=== PATIENT | female | born 1970 | race Caucasian/White ===

== ENCOUNTER → 2017-09-23 17:56 | Outpatient (CLI) | payer MEDICAID, SELFPAY | PROVIDERS: Family Provider Student in an Organized Health Care Education/Training Program; PCP Student in an Organized Health Care Education/Training Program; Visit Provider Obstetrics & Gynecology | DX: Z01.419 Encounter for gynecological examination (general) (routine) without abnormal findings (principal); Z12.4 Encounter for screening for malignant neoplasm of cervix ==

== ENCOUNTER → 2021-07-08 | Outpatient (CLI) | payer MEDICAID, SELFPAY ==
[2021-07-16 16:14] LABS: HPV APTIMA, High Risk Negative (Negative)
== END | disposition home or self-care (01) ==
LOC: LABSPEC 16:12
PROVIDERS: PCP Student in an Organized Health Care Education/Training Program; Visit Provider Obstetrics & Gynecology
DX: Z12.4 Encounter for screening for malignant neoplasm of cervix (principal)
CPT/HCPCS: 87624; 88175; G0145

== ENCOUNTER → 2022-06-18 | Outpatient (CLI) | payer MEDICAID, SELFPAY ==
--- NOTE | 2022-06-18 13:37 | CT_ITS ---
EXAM: CT ABDOMEN AND PELVIS WITH INTRAVENOUS CONTRAST CLINICAL INDICATION: PELVIC MASS TECHNIQUE: Helically acquired images were obtained of the abdomen and pelvis with intravenous contrast. This CT exam was performed using one or more of the following dose reduction techniques: automated exposure control, adjustment of the mA and/or kV according to patient size, and/or use of iterative reconstruction technique. This report was created using [employer] report generation technology. CONTRAST: Oral and amp; IV Readi-CAT and amp; 100mL Isovue-300 COMPARISON: CT Abdomen Pelvis dated 01/23/2014 FINDINGS: LOWER THORAX: Normal. Lung bases are clear. No cardiomegaly. No pericardial effusion. ABDOMEN: LIVER: Normal. Homogeneous. No focal mass. GALLBLADDER AND BILE DUCTS: Gallbladder is absent. No intra- or extrahepatic biliary ductal dilation. PANCREAS: Normal. No focal cystic or solid mass. SPLEEN: Normal. Normal size without focal cystic or solid mass. ADRENALS: Normal. No nodules. KIDNEYS AND URETERS: Normal. Normal renal size and position. No hydronephrosis. STOMACH AND BOWEL: Normal. No bowel distention. No focal inflammatory change. PELVIS: APPENDIX: No evidence of acute appendicitis. BLADDER: Urinary bladder is contracted. REPRODUCTIVE: Fundal uterine fibroids are noted largest one measuring 6.6 cm in maximum diameter. ABDOMEN and PELVIS: INTRAPERITONEAL SPACE: No adnexal mass or free pelvic fluid. No free air. BONES/JOINTS: Normal. No suspicious lytic or blastic abnormality. SOFT TISSUES: Normal. No discrete abdominal or pelvic wall hernia. VASCULATURE: Normal. Abdominal aorta is non-dilated. LYMPH NODES: Normal. No enlarged lymph nodes. CT/Abdomen/Pelvis WITH Contrast IMPRESSION: Fibroid uterus. Electronically Signed: Jerson Yang MD at 14:47 EST ,
[2022-06-18 13:56] LABS: CREATININE FINGERSTICK < 0.9 mg/dL (0.55-1.02); EGFR FINGERSTICK > 60.0000 mL/min (>60)
== END | disposition home or self-care (01) ==
LOC: CT 13:23
PROVIDERS: PCP Student in an Organized Health Care Education/Training Program; Referring Provider Obstetrics & Gynecology; Visit Provider Obstetrics & Gynecology
DX: R19.00 Intra-abdominal and pelvic swelling, mass and lump, unspecified site (principal)
CPT/HCPCS: 74177; Q9967

== ENCOUNTER → 2023-03-25 | Outpatient (CLI) | payer MEDICAID, SELFPAY ==
--- NOTE | 2023-03-25 12:57 | BI_ITS ---
MAMMOGRAPHY - BILATERAL SCREENING REASON FOR EXAM: Female, 52 years old. Routine annual screening examination. PERTINENT HISTORY: Non-contributory. TECHNIQUE: Digital bilateral breast abrahan (3D mammographic acquisition) in the CC and MLO projections. 2-D mediolateral oblique (MLO) and craniocaudad (CC) views of both breasts were obtained. CAD: Full Field Digital Mammography with Computer Added Detection was performed. COMPARISON: Comparison is made with prior outside examination dated October 02, 2021. FINDINGS: Breast Composition: There are scattered areas of fibroglandular density. There are no dominant masses or suspicious calcifications. No other significant abnormalities are identified. There has been no significant change since the prior study. BI/SCRN MAMM (CAD)W/ABRAHAN BILAT IMPRESSION: Stable bilateral screening mammogram. Yearly follow-up mammogram recommended. (A) ASSESSMENT CATEGORY: BIRADS Category 1: Negative. A letter regarding these results will be sent to the patient by the facility within 30 days. Approximately 10% of breast cancers are not detected by mammography. A normal mammogram should not delay biopsy of a clinically suspicious abnormality. [id number] Electronically Signed: José Orellana MD at 8:19 EDT ,
== END | disposition home or self-care (01) ==
LOC: OPBI 12:55
PROVIDERS: PCP Student in an Organized Health Care Education/Training Program; Referring Provider Nurse Practitioner Women's Health; Visit Provider Nurse Practitioner Women's Health
DX: Z12.31 Encounter for screening mammogram for malignant neoplasm of breast (principal)
CPT/HCPCS: 77063; 77067

== ENCOUNTER 2023-09-02 11:00 | Outpatient (RCR) | payer MEDICAID, SELFPAY ==
--- NOTE | 2023-06-17 12:51 | HP.PTEVAL_ITS ---
Patient's Visit Information Visit Information Visit Information: BARBARA THOMAS is a 52 year old F referred to Physical Therapy by Dr. Josh Gastelum MD with a diagnosis of vertigo, unsteadiness.. Date of Evaluation: 06/17/23 Physical Therapist: Cong Lucero, DPT, OCS, CSCS Visit Plan Frequency: 1x/Week Duration: 2 Months Plan: weekly x 8 for 1. Biodex balance performance assessment and pt will do head turn cawthorne netta ex 6-10x 4x/day until then) 2. Then balance as needed, vestibular progression of habituation/adaptation, and get on a general exe program at home. Give exercises each week and pt to do them at home. Subjective Subjective: 30 yrs ago had migraines and dizzyness and off work for a month or two. worsening for 30 yrs, had some good times but also gets worse at times. Had testing in September describing vestibular tests. It put her in tears and has been worse since. Dizzyness is everything moving and feels unsteady. head spins and has for as long as she can remember. Sometimes tolerable. No reason that it started 30 yrs ago. No one can tell her what is causing it, has tried many meds, catscans and MRIs and none show anything. Last MRI may show some veins in brain are slightly dilated possibly suggesting migraines. Has seen brain surgeon who sent her to colleague but nothing they could do. Living on antivert for 30 yrs everyday. It gets worse balance if does not take it for a number of days. Has had IV infusion which made her sick. Takes something for migraines when needed. Takes OTC drugs also. Dizzy is constant and gets worse at rest for no reason with no pattern. Feels off balance when on feet and walking,hard to verbalize what makes it worse. No falls anytime lately. No AD needed. LUTHER baseline constant and car ride makes her worse. LUTHER is R posterior 5-10 Has neuropathy in LE for years with sjogren's syndrome, Is also Diabetic. 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 Sleep is not great, not sure why Basic ADLS getting done. Hobbies: Too tired to do anything, Works and relaxes with games on phone. No regular exercises, just work Pain LUTHER: Pain Intensity (Out of 10): 8 Pain Intensity Range: 5 and 8 Objective Objective: Walks slowly but I into PT, says she feels unsteady but none in gait pattern. Transfers with UE and groans due to LE weakness and discomfort knees and hips from chair and bed. Steps are reciprocal with two rails up and down. Balance is good today without LOB, head movements up and down and side to side seem to be the worst. - B hallpikie howard Oculomotor: any head movement or eye movement makes her wince and groan and stopa dn close eyes with increased dizzyness that might make me nauseous if I continue normal Pursuit and saccades and VOR otherwise. - head thrust - ocular tilt - skew eye deviation. reflexes patella and achilles 1/3 B. sensation LE WNL to gross light touch. Strength LE funcitonally weak on steps and transfers and 3+/5 to testing without myotomal problems. Is in therapy for her LB elsewhere. Pt does well with balance testing but feels insteady much of time and wants to put hands up to balance despite no obvious LOB. Balance/Special Test Scores Functional Gait Assessment Score: 26 % Disability: 13.3400 CATSIB Score (Max score 120 seconds): 120 Dizziness Score: 62 Goals Goal 1:: 29/30 FGA to reduce fall risk Goal Time Frame: 6-8 Weeks Goal 2:: I appropriate HEP of general strength, vestibular ex and balance as needed. Goal Time Frame: 6-8 Weeks Goal 3:: Biodex balance performance assessment Goal Time Frame: 2 Weeks Goal 4:: Pt feel 755 better in overall dizzyness and steadiness and 50% better in LUTHER to 3/10 at worst Goal Time Frame: 6-8 Weeks Goal 5:: 30 or less on DHI Goal Time Frame: 6-8 Weeks Rehabilitation Potential Physical Therapy Diagnosis: Feeling of dizzyness, LUTHER limiting function. Rehabilitation Potential: Questionable Anticipated Interventions Patient/Client Instruction: Educate patient on: Condition and Plan of Care For the Purpose of:: To improve nutrient delivery to tissue, To improve muscle performance and motor function, To increase tolerance to activity/condition/position and To improve ability of physical actions for home/community/work/leisure Therapeutic Exercise to Include: Strength training, Balance training, Postural training and Flexibilty training Comment: vestibular exercises For the Purpose of:: To improve nutrient delivery to tissue, To improve muscle performance and motor function, To increase tolerance to activity/condition/position, To improve ability of physical actions for home/community/work/leisure, To improve gait and locomotor functions and To improve balance Text: Thank you for the opportunity to evaluate your patient. For Medicare and Medicare HMO plans, please review the plan of care and approve it. It will need to be FAXED BACK to us at [phone] for Medicare purposes. For Medicare only, by signing this I certify the plan of care. Please let me know if there are questions or concerns regarding this plan of care. Physician Signature: Date:
--- NOTE | 2023-07-12 14:33 | HP.PTCOM ---
PT Communication Note 07/12/[address] Josh Gastelum MD , Thank you for your referral of Monique to [facility] for vestibular and balance testing. I have enclosed a copy of the results for your review. In summation, she scored very well on the biodex testing on Modified CATSIB and Limits of Stability. her balance tests well but feels off to her which is consistent with her dizzy feeling. With these results in mind, I plan to see her weekly for at least 2 visits or longer in POC to progress vestibular related balance ex and head movement exercises via HEP. Thank you for your referral. Sincerely, LEELEE RamseyT, OCS, CSCS Contact Information
--- NOTE | 2023-07-22 16:14 | HP.PTREVAL_ITS ---
Re-Evaluation Intro: Dr. Josh Gastelum MD, It has been my pleasure to treat BARBARA THOMAS over the last 4 visits for vertigo, unsteadiness.. Please see the progress note below for an update on the physical therapy plan of care! Subjective Subjective: Always painful and always dizzy a little bit. Pt ends to focus on pain rather than movement and any treatment that may help. Objective Objective/Function: Lots of complaints of pain and leg discomfort but did exercises well. C/o knee mismanagement by doctor in past and still focussing on that over any improvement. Plan Plan Plan: get extension and continue POC to a more agggressive leg strength adn progression of VOR weekly x 3 Will need date extension and paperwork given to senior front end web developer. Balance/Gait/Functional tests Balance/Special Test Scores Functional Gait Assessment Score: 26 % Disability: 13.3400 CATSIB Score (Max score 120 seconds): 120 Dizziness Score: 62 Goals Goals Goal 1:: 29/30 FGA to reduce fall risk Goal Time Frame: 6-8 Weeks Goal 2:: I appropriate HEP of general strength, vestibular ex and balance as needed. Goal Time Frame: 6-8 Weeks Goal Progress: Progressing Goal 3:: Biodex balance performance assessment Goal Time Frame: 2 Weeks Goal Progress: Goal Met Goal 4:: Pt feel 755 better in overall dizzyness and steadiness and 50% better in LUTHER to 3/10 at worst Goal Time Frame: 6-8 Weeks Goal Progress: slow Goal 5:: 30 or less on DHI Goal Time Frame: 6-8 Weeks Anticipated Interventions Anticipated Interventions Patient/Client Instruction: Educate patient on: Condition and Plan of Care For the Purpose of:: To improve nutrient delivery to tissue, To improve muscle performance and motor function, To increase tolerance to activity/condition/position and To improve ability of physical actions for home/community/work/leisure Therapeutic Exercise to Include: Strength training, Balance training, Postural training and Flexibilty training Comment: vestibular exercises For the Purpose of:: To improve nutrient delivery to tissue, To improve muscle performance and motor function, To increase tolerance to activity/condition/position, To improve ability of physical actions for home/community/work/leisure, To improve gait and locomotor functions and To improve balance Re-Evaluation Ending Re-evaluation ending: Please do not hesitate to contact me at [phone] by phone or if you have questions or concerns regarding this new plan of care! Sincerely, Cong Lucero, DPT, OCS, CSCS
--- NOTE | 2023-09-02 11:27 | HP.PTDCSUM ---
Discharge Summary D/C summary: It has been my pleasure to treat BARBARA THOMAS referred by Dr. Josh Gastelum MD, with the diagnosis of vertigo, unsteadiness. for a total of 7 visit(s). Discharge Date: 09/02/23 Please see the following information for a summary of their discharge status. Subjective Subjective: Non compliant with HEP daily, maybe did it once or twice. Not sure when f/u is with Dr. Gastelum. Overall up and down depending on the day. Bad days she cannot function with migraines and possible dizzyness or pain from other issues. No pattern noticeable to bad days. Good days not bad, LUTHER is minimal, no dizzyness and can funciton. Again, not sure what leads to these. HEP on different days, can stand up from clients couch but it is still hard from a lower couch, not painful or overly weak. Nothing causes dizzyness unless she spins around, random. No falls lately except on failed step stool. Pain LUTHER: Pain Intensity (Out of 10): 8 knees: Pain Intensity (Out of 10): 5 Overall Improvement % Improvement: 50 Objective Objective/Function: FGA is +2 DHI is about half what it was. Walking well today without LOB and no c/o dizzyness or LUTHER this day. Steps require rail due to distrust of the knees. Compliance with HEP has been and will continue to be questionable. Goals Goal 1:: 29/30 FGA to reduce fall risk Goal Progress: Progressing Goal 2:: I appropriate HEP of general strength, vestibular ex and balance as needed. Goal Progress: compliance? Goal 3:: Biodex balance performance assessment Goal Progress: Goal Met Goal 4:: Pt feel 755 better in overall dizzyness and steadiness and 50% better in LUTHER to 3/10 at worst Goal Progress: 50% Goal 5:: 30 or less on DHI Goal Progress: Progressing Plan Plan: d/c to HEp D/C Information Discharge Comments: Pt to cotninue HEP for head movements, balance and general ex and f/u with doctor as directed. d/c sentence: If there are questions or concerns regarding this patient's physical therapy, please feel free to call me at [phone]. Thank you for the referral of this patient. Sincerely, Cong Lucero, DPT, OCS, CSCS Balance/Gait/Functional tests Balance/Special Test Scores Functional Gait Assessment Score: 28 % Disability: 6.6700 CATSIB Score (Max score 120 seconds): 120 Dizziness Score: 34 Improvement % Improvement: 50
== END 2023-09-02 13:09 | disposition home or self-care (01) ==
LOC: PT 11:00
PROVIDERS: PCP Student in an Organized Health Care Education/Training Program; Referring Provider Psychiatry & Neurology Neurology; Visit Provider Psychiatry & Neurology Neurology
DX: R42 Dizziness and giddiness (principal)
CPT/HCPCS: 97110; 97162; 97750

== ENCOUNTER → 2024-03-30 | Outpatient (CLI) | payer MEDICAID, SELFPAY ==
--- NOTE | 2024-03-30 13:11 | BI_ITS ---
MAMMOGRAPHY - BILATERAL SCREENING REASON FOR EXAM: Female, 53 years old. Routine annual screening examination. PERTINENT HISTORY: Aunt with breast cancer. TECHNIQUE: Digital bilateral breast abrahan (3D mammographic acquisition) in the CC and MLO projections. 2-D mediolateral oblique (MLO) and craniocaudad (CC) views of both breasts were obtained. CAD: Full Field Digital Mammography with Computer Added Detection was performed. COMPARISON: Comparison is made with prior study March 25, 2023. FINDINGS: Breast Composition: There are scattered areas of fibroglandular density. There are no dominant masses or suspicious calcifications. Stable benign-appearing bilateral axillary lymph nodes. No other significant abnormalities are identified. There has been no significant change since the prior study. BI/SCRN MAMM (CAD)W/ABRAHAN BILAT IMPRESSION: Stable bilateral screening mammogram. Yearly follow-up mammogram recommended. (A) ASSESSMENT CATEGORY: BIRADS Category 2: Benign. A letter regarding these results will be sent to the patient by the facility within 30 days. Approximately 10% of breast cancers are not detected by mammography. A normal mammogram should not delay biopsy of a clinically suspicious abnormality. [id number] Electronically Signed: José Orellana MD at 14:09 EDT ,
== END | disposition home or self-care (01) ==
LOC: OPBI 13:11
PROVIDERS: PCP Student in an Organized Health Care Education/Training Program; Referring Provider Nurse Practitioner Family; Visit Provider Nurse Practitioner Family
DX: Z12.31 Encounter for screening mammogram for malignant neoplasm of breast (principal); Z80.3 Family history of malignant neoplasm of breast
CPT/HCPCS: 77063; 77067

== ENCOUNTER 2024-07-19 08:40 | Day surgery (SDC) | payer MEDICAID, SELFPAY ==
[2024-07-19] VITALS (7 sets, daily range): BP systolic 98–122; BP diastolic 65–83; PULSE 70–92; RESP 16; TEMP 36.3–36.6; O2SAT 95–98; BMI 39.6
--- NOTE | 2024-07-19 08:57 | PRE.ANES_ITS ---
ASA Classification* ASA Classification ASA Classification: 2 Assessment & Plan Anesthesia* Anesthesia Assessment Anesthesia Assessment: Discussed sedation and/or anesthesia options, risks, benefits, and alternatives with patient/parents/legal guardian/POA. Questions invited. The patient/parents/legal guardian/POA seems to understand and agrees to proceed with anesthesia plan. Reviewed the physical assessment, medical history, allergy history and patient home medications list prior to surgery/procedure/anesthetic and documented any changes. Performed airway and anesthesia risk assessments. Anesthesia Type Anesthesia Type: MAC Anesthesia Focused Assessment* Airway Assessment Mouth opens: >3 cm Mallampati Score: II Focused Labs Anesthesia Preop lab: CBC WBC 6.7 K/mm3 (4.4-11.0) 08/29/16 06:48 RBC 3.43 M/mm3 (4.2-5.4) L 08/29/16 06:48 Hgb 10.0 g/dl (12.0-15.0) L 08/29/16 06:48 Hct 32.0 % (37-47) L 08/29/16 06:48 Plt Count 342 K/mm3 (150-450) 08/29/16 06:48 CHEMISTRY Potassium 4.1 mmol/L (3.5-5.1) 08/29/16 06:48 Sodium 131 mmol/L (136-145) L 08/29/16 06:48 BUN 8 mg/dL (7-18) 08/29/16 06:48 Creatinine 0.56 mg/dL (0.55-1.02) 08/29/16 06:48 Glucose 171 mg/dL (70-110) H 08/29/16 06:48 POC Glucose 184 mg/dL (70-110) H 08/28/16 16:46 COAG Pre-Assessment Diagnosis/Proposed Procedure Planned Operative Procedure(s): CSCOPE Anesthesia History Anesthesia History - health communications specialist: Anesthesia History - health communications specialist Hx Hospitalization No 06/19/24 12:08 Any Problems With Anesthesia No 06/19/24 12:08 Cholinesterase deficiency No 06/19/24 12:08 You/Your Family Experience No 06/19/24 12:08 fever (hyperthermia) with Relationship Recent Exposure to Contagious No 02/28/20 14:35 Disease Does patient have nerve No 06/19/24 12:08 stimulator Patient instructed to have device shut off --Does patient have Pacemaker or ICD? When Was Last Pacemaker Check QUESTION #4 FULL TEXT: You/Your Family Experience fever (hyperthermia) with Anesthesia Last Oral Intake Last Oral intake: Last Oral Intake NPO since Meds taken in AM with sips of water? Meds patient instructed to take am of surgery PONV PONV - health communications specialist: PONV - health communications specialist Female Yes 06/19/24 12:08 HX of Motion Sickness Yes 06/19/24 12:08 HX of N/V After Surgery No 06/19/24 12:08 Non-Smoker Yes 06/19/24 12:08 Duration of Surgery greater No 06/19/24 12:08 than 60 minutes Number of Risk Factors 3 06/19/24 12:08 PONV Score Moderate Risk 06/19/24 12:08 Height & Weight Height & Weight: Anesthesia: Height & Weight Height 5 ft 6 in 04/27/24 13:23 Respiratory Assessment Respiratory Assessment - health communications specialist: Respiratory Tract Infection Hx - health communications specialist Hx Respiratory Tract Infection No 06/19/24 12:08 STOP Sleep Apnea STOP Sleep Apnea - health communications specialist: STOP Sleep Apnea - health communications specialist Hx Hypertension No 06/19/24 12:08 Hx Sleep Apnea No 06/19/24 12:08 CPAP No 02/28/20 14:35 BIPAP Do you snore loudly (louder No 06/19/24 12:08 than talking or can be heard Do you often feel tired/ Yes 06/19/24 12:08 fatigued/ sleepy during daytime? Has anyone observed you stop No 06/19/24 12:08 breathing during sleep? STOP Results Negative 06/19/24 12:08 QUESTION #5 FULL TEXT : Do you snore loudly (louder than talking or can be heard through closed doors)? Tobacco Use History Tobacco Use History - health communications specialist: Tobacco Use History - health communications specialist Tobacco Use Smoking Status Never smoker 06/19/24 12:08 Hx Tobacco Use No 06/19/24 12:08 Years Smoking Packs Smoked per Day Smoking Cessation Date was within the last 15 years Hx Smoking Cessation Date Hx Smoking Cessation Counseling Hematologic Medial History Hematologic Hx - health communications specialist: Hematologic Medical Hx - divorce lawyer Hx of Blood Transfusion No 06/19/24 12:08 Hx of Transfusion in last 3 No 06/19/24 12:08 Months Date of Last Transfusion (if within last 3 months) Ever experience any problems No 06/19/24 12:08 with transfusion(s)? Specify any problems Hx of Preganancy in last 3 No 06/19/24 12:08 Months Nurse Filling Out Transfusion DSCHRIBER 06/19/24 12:08 & Questions: Date: 06/19/24 06/19/24 12:08 Time: 12:10 06/19/24 12:08 Patient unable to answer at this time (ie. confused, unrespo /Reproduction History /Reproductive History - health communications specialist: /Reproductive Hx- health communications specialist Hx Now No 06/19/24 12:08 Gestational Age (in weeks): EDC: Hx Hx Para Hx Section SAB No 06/19/24 12:08 [facility] Medical History Loss of hearing Depression History of steroid therapy Thyroid disease Insulin dependent diabetes mellitus Arthritis Low iron Back pain Injury of head and neck Migraine headache Syncope Difficulty swallowing Dietary restriction Gastric reflux Asthma Non-smoker Shortness of breath on exertion History of pain when walking Diarrhea Nausea Acid reflux Sjogrens syndrome Fibromyalgia h/o kidney stone removal Home Medications ?Medication ?Instructions ?Recorded ?Last Taken ?Type amitriptyline 25 mg tablet 50 mg PO QHS 08/20/16 Unknown History cholecalciferol (vitamin D3) 125 5,000 unit PO DAILY 08/20/16 Unknown History mcg (5,000 unit) capsule magnesium 200 mg tablet 200 mg PO DAILY 08/20/16 Unknown History meclizine 25 mg tablet 25 mg PO QHS 08/20/16 Unknown History multivitamin 1 tab PO DAILY 08/20/16 Unknown History levothyroxine 25 mcg tablet 25 mcg PO DAILY 07/24/20 Unknown History metformin 500 mg tablet 1,000 mg PO BID 07/24/20 Unknown History venlafaxine 75 mg tablet 75 mg PO QHS 07/24/20 Unknown History insulin aspart U-100 100 unit/mL See Rx Instructions subcut .COMPLEX 04/16/21 Unknown History (3 mL) subcutaneous pen insulin glargine 100 unit/mL (3 12 unit subcut .HS 04/16/21 Unknown History mL) subcutaneous pen ubrogepant 100 mg tablet (Ubrelvy) 100 mg PO PRN PRN MIGRAINES 04/28/23 Unknown History atogepant 30 mg tablet (Qulipta) 60 mg PO DAILY 03/02/24 Unknown History albuterol sulfate 90 mcg/actuation 2 puff inhalation PRN PRN dyspnea 06/19/24 Unknown History aerosol inhaler (Ventolin HFA) dulaglutide 3 mg/0.5 mL 3 mg subcut BROOKS 06/19/24 07/09/24 History subcutaneous pen injector (Trulicity) famotidine 20 mg tablet (Pepcid AC) 20 mg PO BID 06/19/24 Unknown History ferrous sulfate 325 mg (65 mg 325 mg PO DAILY 06/19/24 Unknown History iron) tablet (Iron (ferrous sulfate)) sodium sul 1.479 gram-potas ch See Rx Instructions PO PER PKG DIR 06/21/24 Unknown Rx 0.188 gram-magnes sul 0.225 gram #1 pkg tablet (Sutab) progesterone micronized 100 mg 100 mg PO QHS #30 caps 06/22/24 Unknown Rx capsule (Prometrium) Allergy/AdvReac Type Severity Reaction Status Date / Time peanut Allergy Mild lip Verified 07/13/24 13:34 numbness clarithromycin (From Biaxin) Allergy Unknown Verified 07/13/24 13:34 oxycodone Allergy Itching Verified 07/13/24 13:34 Sulfa (Sulfonamide Allergy Unknown Verified 07/13/24 13:34 Antibiotics) cortisone AdvReac LETHARGIC Verified 07/13/24 13:34 Family History Mother Diabetes Thyroid disorder Fibromyalgia Arthritis Total knee replacement status Father CVA (cerebral vascular accident) Diabetes Heart valve replaced Thyroid disorder kidney Dementia Sister Thyroid disorder Depression Uncle Leukemia Grandfather Lung cancer Other Cancer Surgical History History of esophagogastroduodenoscopy (EGD) Hx of colonoscopy H/O sinus surgery H/O hand surgery History of cholecystectomy History of oophorectomy H/O total knee replacement Social History household members: other details: parents, sister housing: house current occupational status: employed Smoking Status: Never smoker alcohol intake: never what type of physical activity do you participate in: none do you feel safe at home: Yes Review of Systems (Anesthesia) ROS Narrative System reviewed and no additional complaints, except as documented.
--- NOTE | 2024-07-19 09:17 | H&P.OPEN ---
HPI - General General Date of Service: 07/19/24 HPI Narrative BARBARA THOMAS, is a 53 F who presents for an EGD and colonoscopy due to GERD and screening colonoscopy. Patient is still taking Pepcid twice daily. States she does have a little bit reflux daily depending on the food she eats. Patient otherwise states she is still having bowel movements daily. Denies any other changes. Office visit 04/27/2024 [facility] HPI: 53-year-old female presents for EGD and colonoscopy. Patient states her last EGD and colonoscopy was in 2009 about at [facility] [place] states colonoscopy was negative. Patient states she has been on omeprazole until the spring [facility] patient came off as she heard about possible increased risk for dementia which she does have a family history of. Patient is currently taking [id number] famotidine 40 mg p.o. twice daily. Patient states she still gets upset stomach and quite a bit of nausea which she states was about the same with the omeprazole as well patient also has a past medical history significant for Sjogren's and does not notice some issues with swallowing the upper esophagus. Patient was told in 2009 she had some erosions at her GE junction. Patient states she has bowel movements daily does occasionally get diarrhea typically in the morning states unsure if it is from her magnesium she takes at night which she takes for migraines and muscle cramps. Patient denies any blood in her stool. Patient does take occasional Pepto-Bismol as well denies any black stools with that. Patient denies any family history of colon cancer. Patient's dad did have significant number of polyps unsure exact size currently. [facility] Medical History Loss of hearing Depression History of steroid therapy Thyroid disease Insulin dependent diabetes mellitus Arthritis Low iron Back pain Injury of head and neck Migraine headache Syncope Difficulty swallowing Dietary restriction Gastric reflux Asthma Non-smoker Shortness of breath on exertion History of pain when walking Diarrhea Nausea Acid reflux Sjogrens syndrome Fibromyalgia h/o kidney stone removal Home Medications ?Medication ?Instructions ?Recorded ?Last Taken ?Type amitriptyline 25 mg tablet 50 mg PO QHS 08/20/16 Unknown History cholecalciferol (vitamin D3) 125 5,000 unit PO DAILY 08/20/16 Unknown History mcg (5,000 unit) capsule magnesium 200 mg tablet 200 mg PO DAILY 08/20/16 Unknown History meclizine 25 mg tablet 25 mg PO QHS 08/20/16 Unknown History multivitamin 1 tab PO DAILY 08/20/16 Unknown History levothyroxine 25 mcg tablet 25 mcg PO DAILY 07/24/20 Unknown History metformin 500 mg tablet 1,000 mg PO BID 07/24/20 Unknown History venlafaxine 75 mg tablet 75 mg PO QHS 07/24/20 Unknown History insulin aspart U-100 100 unit/mL See Rx Instructions subcut .COMPLEX 04/16/21 Unknown History (3 mL) subcutaneous pen insulin glargine 100 unit/mL (3 12 unit subcut .HS 04/16/21 Unknown History mL) subcutaneous pen ubrogepant 100 mg tablet (Ubrelvy) 100 mg PO PRN PRN MIGRAINES 04/28/23 Unknown History atogepant 30 mg tablet (Qulipta) 60 mg PO DAILY 03/02/24 Unknown History albuterol sulfate 90 mcg/actuation 2 puff inhalation PRN PRN dyspnea 06/19/24 Unknown History aerosol inhaler (Ventolin HFA) dulaglutide 3 mg/0.5 mL 3 mg subcut BROOKS 06/19/24 07/09/24 History subcutaneous pen injector (Trulicity) famotidine 20 mg tablet (Pepcid AC) 20 mg PO BID 06/19/24 Unknown History ferrous sulfate 325 mg (65 mg 325 mg PO DAILY 06/19/24 Unknown History iron) tablet (Iron (ferrous sulfate)) sodium sul 1.479 gram-potas ch See Rx Instructions PO PER PKG DIR 06/21/24 Unknown Rx 0.188 gram-magnes sul 0.225 gram #1 pkg tablet (Sutab) progesterone micronized 100 mg 100 mg PO QHS #30 caps 06/22/24 Unknown Rx capsule (Prometrium) Allergy/AdvReac Type Severity Reaction Status Date / Time peanut Allergy Mild lip Verified 07/19/24 09:07 numbness clarithromycin (From Biaxin) Allergy Unknown Verified 07/19/24 09:07 oxycodone Allergy Itching Verified 07/19/24 09:07 Sulfa (Sulfonamide Allergy Unknown Verified 07/19/24 09:07 Antibiotics) cortisone AdvReac LETHARGIC Verified 07/19/24 09:07 Family History Mother Diabetes Thyroid disorder Fibromyalgia Arthritis Total knee replacement status Father CVA (cerebral vascular accident) Diabetes Heart valve replaced Thyroid disorder kidney Dementia Sister Thyroid disorder Depression Uncle Leukemia Grandfather Lung cancer Other Cancer Surgical History History of esophagogastroduodenoscopy (EGD) Hx of colonoscopy H/O sinus surgery H/O hand surgery History of cholecystectomy History of oophorectomy H/O total knee replacement Social History household members: other details: parents, sister housing: house current occupational status: employed Smoking Status: Never smoker alcohol intake: never what type of physical activity do you participate in: none do you feel safe at home: Yes Past Medical/Surgical History Planned Operation Planned Operative Procedure(s): CSCOPE S.O.S: No Previous Hospitalizations/Surgeries HX Hospitalizations: No HX of Surgeries: LEFT HAND NERVE SURGERY RIGHT KNEE SCOPE X2 RHINOPLASTY GALLBLADDER LAPAROSCOPY X2 REMOVAL LEFT OVARY UTERINE FIBROIDS REMOVED COLONOSCOPY/EGD Any Problems With Anesthesia: No You/Your Family Experience Fever (Hyperthermia) With Anes: No Cholinesterase deficiency: No Cardiovascular Hx Chest Pain within Last 2 months: No Hx of Irregular Heartbeat and/or Afib: No Hx Heart Attack: No Hx Congestive Heart Failure: No Hx Rheumatic Fever: No Hx Hypertension: No Hx Internal Defibrillator: No Hx Pacemaker: No Hx Cardiac Catheterization: No Hx Cardiac Surgery/Stents/Etc.: No Hx Stress Test: No Hx Pain in Legs when Walking/Leg Cramps: Yes (RIGHT KNEE/FIBROMYALGIA) Respiratory Chronic Cough: No HX of Shortness of Breath: No Hoarseness: No Hx Chronic Obstructive Pulmonary Disease (COPD): No Hx Asthma: Yes (ASTHMA LIKE SYMPTOMS ONLY WITH SICKNESS/PRN INHALER) Hx Emphysema: No Hx Sleep Apnea: No CPAP: No Hx Respiratory Tract Infection/Cold (presently): No Do You Snore Loudly (louder than talking or can be heard): No Do You Often Feel Tired/ Fatigued/ Sleepy Dring Daytime?: Yes Has Anyone Observed You Stop Breathing During Sleep?: No Result (for STOP score): Negative Hx Smoking: No Smoking Status: Never smoker Gastrointestinal Controlled With Meds: Yes Hx Gastrointestinal Disorders: Yes (IBS) Hx Gastrointestinal Bleed: No Hx Ulcer: No Hx Hiatal Hernia: No Difficulty Chewing/Swallowing: Yes (TMJ/SWALLOWING ISSUES AT TIMES) Special diet followed at home: Yes (DIABETIC) Hx Unplanned Weight Loss of 20#: No HX Unplanned Weight Gain of 20#: No Neurological Hx Seizures: No HX Syncope/Blackout Spells/Unconsciousness: Yes (DIZZY SPELLS USES ANTIVERT PRN) Hx Transient Ischemic Attacks (TIA): No Hx Multiple Sclerosis: No Hx Parkinson's Disease: No Hx Head/Neck Injury: No Hx Headaches: Yes (MIGRAINE AND TENSION LUTHER) Hx Back Injury/Pain: Yes (LOW BACK PAIN AT TIMES) Recent Onset of Speech Difficulty: No Restless Legs: No Does patient have nerve stimulator: No Blood Disorder Hx Leukemia: No Bleeding Tendencies: No Hx Deep Vein Thrombosis: No Hx High Cholesterol: No Blood Transmitted Disease: No Hx Hepatitis: No Hx Cirrhosis: No Hx Anemia: No Hx Blood Disorders: No Reproduction : No Is Patient Lactating: No Hx Hysterectomy: No Hx Tubal Ligation: No Are You Post Menopause: No Genitourinary Hx Renal Disease: No Musculoskeletal Hx Arthritis: Yes Hx Rheumatoid Arthritis: No Hx Gout: No Recent Onset of an Orthopedic Problem: No Endocrine Hx Diabetes: Yes Insulin: No Thyroid Disease: No Hx Steroid Therapy: No Psycho/Social Hx Substance Use: No Hx Alcohol Use: No Hx Anxiety: No Hx Depression: Yes Mental Illness: No Hx Dementia: No Miscellaneous Hx Cancer: No Recent Exposure to Contagious Disease: No Hx of C-Diff: No Any Loose Teeth: No Allergies peanut Allergy (Mild, Verified 07/19/24 09:07) lip numbness lip numbness clarithromycin (From Biaxin) Allergy (Verified 07/19/24 09:07) Unknown oxycodone Allergy (Verified 07/19/24 09:07) Itching Sulfa (Sulfonamide Antibiotics) Allergy (Verified 07/19/24 09:07) Unknown cortisone Adverse Reaction (Verified 07/19/24 09:07) LETHARGIC Discharge Is Pt Admitted From a Longterm, or a Alf: No After D/C, Where Do you Plan to Go: Return Home Vital Signs Vital Signs Vital Signs: 07/19/24 09:07 Temperature 97.3 F L Temperature Source Temporal Pulse Rate 92 Respiratory Rate 16 Blood Pressure 122/83 H Blood Pressure Mean 96 Blood Pressure Source Monitor Blood Pressure Position Semi-Fowlers Blood Pressure Location Left Arm Pulse Ox 97 Oxygen Delivery Method Room Air Weight Weight: 246 lb Body Mass Index (BMI) 39.6 Physical Exam Const alert, oriented x3 and no apparent distress HEENT normocephalic and head/scalp atraumatic Resp normal respiratory effort Cardio regular rate GI soft to palpation and non-tender; Negative for non-distended Palpation: Negative for guarding Extremity no clubbing, cyanosis or edema Skin no rashes or lesions noted Neuro CN's II-XII intact bilaterally Psych mental status grossly normal Assessment & Plan Assessment/Plan (1) Acid reflux: (2) Screening for colon cancer: Surgery Risks - Colonoscopy I discussed with the patient the risks of the procedure: Yes Risks Include but are not Limited To: Plan for an EGD and colonoscopy risks include but are not limited to: Bleeding, perforation requiring further surgery, inability to complete colonoscopy requiring barium enema.
[2024-07-19 10:08] LABS: Bedside Glucose 116 mg/dL (74-106)
--- NOTE | 2024-07-19 10:15 | IMM_PTH ---
PATIENT: BARBARA THOMAS LOC: EN U#:[id number] AGE/SX: 53/F ROOM: RE07/19/[address]: Dr. Polina Feldman MD : 1970 BED: DIS: 07/19/2024 SPEC #: [id number] RECD: 07/20/24 10:56 STATUS: СВЕТЛАНА REQ #: [id number] ANDREIA: 07/19/24 10:[address]: Polina Feldman DEPT: IMMUNOHISTOCHEMISTRY RECD BY: Handy Jaimes ENTERED: 07/20/24 10:56 SP TYPE: IMMUNO OTHR DR: Dr. Arabella Villagran MD Tissues: A - Gastric mucous membrane Procedures: H Pylori (initial) PHYSICIAN & INSTITUTION [place] [address] SPECIMEN INFORMATION: Tissue Source: A- Gastric antrum biopsy Clinical Info: Acid reflux, screening for colon cancer Specimen Number: [id number] CPT code: 13386 METHODOLOGY: Deparaffinized sections of prefer/formalin-fixed tissue or PAP/DQ stained slides are incubated with monoclonal/polyclonal antibodies/oligonucleotide probes. Localization is made via biotin free immunoperoxidase method. Appropriate controls are performed and reacted as expected. Results on target cell population are indicated in the following table: RESULTS: ANTIBODY / CLONE RESULT Block A H Pylori (polyclonal) negative These tests were developed and their performance characteristics determined by [facility]. They may not have been cleared or approved by the U.S. Food and Drug Administration. The FDA has determined that such clearance or approval is not necessary. The above immunohistochemical/dualISH markers are ordered and reviewed by the Pathologist. INTERPRETATION: A. Gastric antrum, biopsy: Negative for Helicobacter pylori organisms. 07/21/2024
--- NOTE | 2024-07-19 10:15 | EGD_PTH ---
PATIENT: BARBARA THOMAS LOC: EN U#:[id number] AGE/SX: 53/F ROOM: RE07/19/[address]: Dr. Polina Fledman MD : 1970 BED: DIS: 07/19/2024 SPEC #: [id number] RECD: 07/20/24 07:40 STATUS: СВЕТЛАНА RERory #: [id number] ANDREIA: 07/19/24 10:[address]: Polina Feldman DEPT: SURGICAL PATHOLOGY RECD BY: Jackie Matthew ENTERED: 07/20/24 12:02 SP TYPE: EGD BIOPSY JULIO CÉSAR DR: Dr. Arabella Villagran MD Tissues: A - Gastric mucous membrane B - Esophagus, NOS Procedures: Special Stain Group I Surgery Specimen Level IV Alcian Blue/PAS (control) HEADER OPERATION: Colonoscopy, EGD PRE-OP DIAGNOSIS: Acid reflux, screening for colon cancer TISSUE SUBMITTED: A- Gastric antrum biopsy, B- Gastroesophageal junction biopsy MICROSCOPIC DIAGNOSIS A. Gastric antrum, biopsy: Mild gastritis. See microscopic description and comment. B. Gastroesophageal junction, biopsy: Fragments of gastric mucosa with ulceration, fibrinopurulent exudation and acute and chronic inflammation. Intestinal metaplasia (goblet cell metaplasia) not identified. See comment. 07/21/2024 COMMENT A. The results of immunohistochemistry for Helicobacter pylori will be reported separately ([id number]). B. Alcian blue/PAS stain with matched control is used in the evaluation of the specimen. MICROSCOPIC DESCRIPTION Slides are reviewed. A. The specimen shows fragments of gastric mucosa with chronic inflammatory cell infiltrates in the lamina propria consisting of lymphocytes and plasma cells, consistent with mild chronic gastritis. GROSS DESCRIPTION A. Received in fixative is one container labeled with the patient's name and designated Gastric antrum biopsy. The specimen consists of one irregular fragment of light pink soft tissue that measure 0.6 x 0.3 x 0.1 cm. The specimen is totally submitted in one cassette. B. Received in fixative is one container labeled with the patient's name and designated GE junction. The specimen consists of two irregular fragments of light pink soft tissue that measures 0.6 x 0.2 x 0.1 cm. The specimen is totally submitted in one cassette. 07/20/2024 TC:2 CPT:00877a8, 20321
--- NOTE | 2024-07-19 12:33 | OP.EGD_ITS ---
Patient Name: Monique Ho Procedure Date: 07/19/2024 11:51 AM Date of : 1970 Age: 53 Procedure: Upper GI endoscopy Indications: Heartburn Providers: Polina Feldman MD Referring MD: Polina Feldman MD Medicines: Monitored Anesthesia Care Patient Profile: This is a 53 year old female. Complications: No immediate complications. Procedure: Pre-Anesthesia Assessment: - Prior to the procedure, a History and Physical was performed, and patient medications and allergies were reviewed. The patient's tolerance of previous anesthesia was also reviewed. The risks and benefits of the procedure and the sedation options and risks were discussed with the patient. All questions were answered, and informed consent was obtained. Prior Anticoagulants: The patient has taken no anticoagulant or antiplatelet agents. ASA Grade Assessment: Per anesthesia. After reviewing the risks and benefits, the patient was deemed in satisfactory condition to undergo the procedure. After obtaining informed consent, the endoscope was passed under direct vision. Throughout the procedure, the patient's blood pressure, pulse, and oxygen saturations were monitored continuously. The colonoscope was introduced through the mouth, and advanced to the second part of duodenum. The upper GI endoscopy was accomplished without difficulty. The patient tolerated the procedure well. Scope In: 11:56:01 AM Scope Out: 12:00:17 PM Total Procedure Duration Time 0 hours 4 minutes 16 seconds Findings: The Z-line was irregular and was found 37 cm from the incisors. Biopsies were taken with a cold forceps for histology. Multiple dispersed less than 1 mm erosions with stigmata of recent bleeding were found in the gastric antrum. Biopsies were taken with a cold forceps for histology. Biopsies were taken with a cold forceps for Helicobacter pylori cultures. The examined duodenum was normal. The cardia and gastric fundus were normal on retroflexion. The exam was otherwise without abnormality. Impression: - Z-line irregular, 37 cm from the incisors. Biopsied. - Erosive gastropathy with stigmata of recent bleeding. Biopsied. - Normal examined duodenum. - The examination was otherwise normal. Recommendation: - Await pathology results. - Discharge patient to home. - Resume previous diet. - Use Prilosec (omeprazole) 40 mg PO daily. - Continue present medications. Procedure Code(s): --- Professional --- 57188, Esophagogastroduodenoscopy, flexible, transoral; with biopsy, single or multiple Diagnosis Code(s): --- Professional --- K22.89, Other specified disease of esophagus K92.2, Gastrointestinal hemorrhage, unspecified R12, Heartburn CPT copyright 2021 [employer]. All rights reserved. The codes documented in this report are preliminary and upon sand cutter operator review may be revised to meet current compliance requirements. MD Polina Gaona MD 07/19/2024 12:32:49 PM This report has been signed electronically. Number of Addenda: 0 Note Initiated On: 07/19/2024 11:51 AM
--- NOTE | 2024-07-19 12:33 | OP.CCLET_ITS ---
07/19/2024 Arabella Villagran Md Re : Upper GI endoscopy procedure for Monique Ho Dear Sparkle This procedure was performed on Friday, July 19, 2024. My impressions and recommendations are as follows: Impressions : - Z-line irregular, 37 cm from the incisors. Biopsied. - Erosive gastropathy with stigmata of recent bleeding. Biopsied. - Normal examined duodenum. - The examination was otherwise normal. Recommendations : - Await pathology results. - Discharge patient to home. - Resume previous diet. - Use Prilosec (omeprazole) 40 mg PO daily. - Continue present medications. My findings are described in the full procedure note, which is enclosed. If I can be of further assistance, please feel free to contact me at Doctor phone number(s): , Work: . Sincerely, MD Polina Gaona MD 07/19/2024 12:32:49 PM This report has been signed electronically.
--- NOTE | 2024-07-19 12:40 | PCM.POST.ANE ---
Anesthesia: Postop Eval I Current Vital Signs Temperature: 97.8 F Pulse Rate: 74 Blood Pressure: 98/73 Respiratory Rate: 16 Pulse Ox: 98 Oxygen Delivery Method: Room Air Assessment Airway patent: Yes Spontaneous unlabored respirations: Yes Mental status: Awake and Calm nausea: No Vomiting: No Anesthesia Complication: No Fluid Hydration Crystalloid volume administer (ml): 105 Total IV fluid infused: 105 Progress Note Anesthesia document: Postop Eval 1 completed: Yes
--- NOTE | 2024-07-19 12:42 | OP.CCLET_ITS ---
07/19/2024 Arabella Villagran Md Re : Colonoscopy procedure for Monique Ho Dear Sparkle This procedure was performed on Friday, July 19, 2024. My impressions and recommendations are as follows: Impressions : - Preparation of the colon was fair. - No specimens collected. Recommendations : - Discharge patient to home. - Resume previous diet. - Continue present medications. - Repeat colonoscopy In 5 years due to suboptimal prep. Recommend stay away from fibrous food 3 days. My findings are described in the full procedure note, which is enclosed. If I can be of further assistance, please feel free to contact me at Doctor phone number(s): , Work: . Sincerely, MD Polina Gaona MD 07/19/2024 12:41:32 PM This report has been signed electronically.
--- NOTE | 2024-07-19 12:42 | OP.COLON_ITS ---
Patient Name: Monique Ho Procedure Date: 07/19/2024 12:00 PM Date of : 1970 Age: 53 Procedure: Colonoscopy Indications: Screening for colorectal malignant neoplasm Providers: Polina Feldman MD Referring MD: Polina Feldman MD Medicines: Monitored Anesthesia Care Patient Profile: This is a 53 year old female. Last Colonoscopy: 2009. Complications: No immediate complications. Procedure: Pre-Anesthesia Assessment: - Prior to the procedure, a History and Physical was performed, and patient medications and allergies were reviewed. The patient's tolerance of previous anesthesia was also reviewed. The risks and benefits of the procedure and the sedation options and risks were discussed with the patient. All questions were answered, and informed consent was obtained. Prior Anticoagulants: The patient has taken no anticoagulant or antiplatelet agents. ASA Grade Assessment: Per anesthesia. After reviewing the risks and benefits, the patient was deemed in satisfactory condition to undergo the procedure. - Prior to the procedure, a History and Physical was performed, and patient medications and allergies were reviewed. The patient's tolerance of previous anesthesia was also reviewed. The risks and benefits of the procedure and the sedation options and risks were discussed with the patient. All questions were answered, and informed consent was obtained. Prior Anticoagulants: The patient has taken no anticoagulant or antiplatelet agents. ASA Grade Assessment: Per anesthesia. After reviewing the risks and benefits, the patient was deemed in satisfactory condition to undergo the procedure. After I obtained informed consent, the scope was passed under direct vision. Throughout the procedure, the patient's blood pressure, pulse, and oxygen saturations were monitored continuously. The colonoscope was introduced through the anus and advanced to the cecum, identified by the appendiceal orifice, ileocecal valve and palpation. The colonoscopy was performed without difficulty. The patient tolerated the procedure well. The quality of the bowel preparation was fair. Scope In: 12:01:54 PM Scope Withdrawal Time 0 hours 15 minutes 32 seconds Scope Out: 12:26:02 PM Total Procedure Duration Time 0 hours 24 minutes 8 seconds Findings: The perianal and digital rectal examinations were normal. Fibrous debris was noted in the cecum as well as the ascending colon limiting visualization in those areas. The exam was otherwise without abnormality. Impression: - Preparation of the colon was fair. - No specimens collected. Recommendation: - Discharge patient to home. - Resume previous diet. - Continue present medications. - Repeat colonoscopy In 5 years due to suboptimal prep. Recommend stay away from fibrous food 3 days. Procedure Code(s): --- Professional --- G0121, PT, Colorectal cancer screening; colonoscopy on individual not meeting criteria for high risk Diagnosis Code(s): --- Professional --- Z12.11, Encounter for screening for malignant neoplasm of colon CPT copyright 2021 [employer]. All rights reserved. The codes documented in this report are preliminary and upon cosmetic chemist review may be revised to meet current compliance requirements. MD Polina Gaona MD 07/19/2024 12:41:32 PM This report has been signed electronically. Number of Addenda: 0 Note Initiated On: 07/19/2024 12:00 PM
--- NOTE | 2024-07-19 13:41 | PCM.POSTANE2 ---
Anesthesia Postop Eval I Sum Postop Eval Completion status Anesthesia document: Postop Eval 1 completed: Yes Anesthesia Postop Eval I Summary Anesthesia Postop Eval I Summary: Anesthesia Postop Eval I: Assessment Summary Airway patent Yes 07/19/24 12:41 [email or web address] Spontaneous unlabored Yes 07/19/24 12:41 [email or web address] respirations Mental status Awake,Calm 07/19/24 12:41 [email or web address] nausea No 07/19/24 12:41 [email or web address] Vomiting No 07/19/24 12:41 [email or web address] Anesthesia Postop Eval I: Fluid Summary Crystalloid volume administer 105 07/19/24 12:41 [email or web address] (ml) Colloids volume administered ( ml) Blood Product volume administered (ml) Total IV fluid infused 105 07/19/24 12:41 [email or web address] Anesthesia Postop Eval I: Summary Notes Anesthesia Complication No 07/19/24 12:41 [email or web address] Anesthesia Complication Comment: Post-operative progress note Anesthesia: Postop Eval II Evaluation Mental status: Awake Pain Level: 0 nausea: No Vomiting: No
== END 2024-07-19 13:30 | disposition home or self-care (01) ==
LOC: EN 08:40 → AC 08:41
PROVIDERS: PCP Student in an Organized Health Care Education/Training Program; Referring Provider Surgery; Visit Provider Surgery
PROC: 0DJD8ZZ Inspection of Lower Intestinal Tract, Via Natural or Artificial Opening Endoscopic (ICD-10-PCS; CPT 45378; principal; 2024-07-19 10:10)
DX: Z12.11 Encounter for screening for malignant neoplasm of colon (principal); E11.9 Type 2 diabetes mellitus without complications; Z79.4 Long term (current) use of insulin; K21.00 Gastro-esophageal reflux disease with esophagitis, without bleeding; Z79.899 Other long term (current) drug therapy; M35.00 Sjogren syndrome, unspecified; J45.909 Unspecified asthma, uncomplicated; K29.70 Gastritis, unspecified, without bleeding; Z79.85 Long-term (current) use of injectable non-insulin antidiabetic drugs; Z79.890 Hormone replacement therapy; E07.9 Disorder of thyroid, unspecified; K25.4 Chronic or unspecified gastric ulcer with hemorrhage
CPT/HCPCS: 43239; 45378; 82962; 88305; 88312; 88342; A4216; J2405

== ENCOUNTER → 2025-07-19 | Outpatient (CLI) | payer MEDICAID, SELFPAY ==
--- NOTE | 2025-07-19 15:24 | MRI_ITS ---
PROCEDURE: UPPER EXT JOINT ONLY(ROUTINE) 07/19/2025 REASON FOR EXAM: SHOULDER PAIN/LIMITED ROM CONTINUES AFTER CONSERVA TECHNIQUE: Procedure Code: MRIUEJ Modality: MR Procedure: UPPER EXT JOINT ONLY(ROUTINE) Multiplanar and multisequence images were obtained without IV contrast administration. COMPARISON: none FINDINGS: The supraspinatus tendon shows intrasubstance high signal abutting its articular surface suggesting partial thickness tear. No evidence of complete fibers interruption. Thickening and intrasubstance high signal of the subscapularis tendon suggesting tendonitis. No evidence of complete fibers interruption. Intrasubstance high signal of the infraspinatus tendon suggesting tendinosis with no evidence of complete fibers interruption. The teres minor tendon appears intact. High signal of the intra-articular segment of the long head of biceps tendon suggesting tendonitis. Fluid signal distending its sheath. No obvious glenoid labral tears. 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 Intact glenohumeral joint. Mild glenohumeral joint effusion Fluid signal distending the subcoracoid and subacromial/subdeltoid bursa. Focal cortical irregularities and subcortical pseudocysts & marrow edema of the humeral head/greater tuberosity. No marrow infiltrative lesions. The neurovascular bundles appear unremarkable. 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 Supraspinatus tendonitis with partial thickness tear. Subscapularis tendonitis. Infraspinatus tendonitis. Tendonitis of the long head of biceps tendon. Mild glenohumeral joint effusion with small subacromial/subdeltoid bursitis. Reading Location[facility] [place] [id number]
== END | disposition home or self-care (01) ==
LOC: OPMRI 15:20
PROVIDERS: PCP Student in an Organized Health Care Education/Training Program; Referring Provider Nurse Practitioner Family; Visit Provider Nurse Practitioner Family
DX: M75.01 Adhesive capsulitis of right shoulder (principal); M19.011 Primary osteoarthritis, right shoulder; M54.2 Cervicalgia
CPT/HCPCS: 73221